=== PATIENT | female | born 1935 | race Caucasian/White ===

== ENCOUNTER → 2018-12-02 | Outpatient (CLI) | payer OTHER | LOC: FIMAGING 13:40 | DX: M41.9 Scoliosis, unspecified (principal); M51.35 Other intervertebral disc degeneration, thoracolumbar region; M54.5 Low back pain ==

== ENCOUNTER → 2019-03-26 | Outpatient (CLI) | payer OTHER | LOC: BMCIMAGING 14:31 | DX: Z13.820 Encounter for screening for osteoporosis (principal); M85.89 Other specified disorders of bone density and structure, multiple sites; E03.9 Hypothyroidism, unspecified; Z78.0 Asymptomatic menopausal state; Z79.890 Hormone replacement therapy ==